=== PATIENT | female | born 1990 | race Caucasian/White ===

== ENCOUNTER 2016-02-18 05:54 | Emergency (ER) | payer OTHER ==
[2016-02-18] MEDS ORDERED: ONDANSETRON 4 MG ORAL DISINTEGRATING TAB (S0181) As Ordered ONE (06:10)
[2016-02-18] MEDS ORDERED: METOCLOPRAMIDE INJ 10MG/2ML VIAL (J2765) As Ordered ONE (07:33)
--- NOTE | 2016-02-18 09:38 | EDDOCDS ---
Physician Documentation [facility] Name: Sayra Hester Age: 25 yrs Sex: Female : 1990 Arrival Date: 02/18/2016 Time: 05:54 Bed 5 Private MD: Barrett [facility] Disposition: 02/18/16 08:17 Discharged to Home/Self Care. Impression: Nausea and vomiting. - Condition is Stable. - Discharge Instructions: Nausea and Vomiting. - Prescriptions for ZOFRAN ODT 4 mg - dissolve 1 tablet by ORAL route 4 times per day As needed do not chew, do not swallow whole; 10 tablet. - Medication Reconciliation, Family Work Release form. - Follow up: Emergency Department; When: As needed; Reason: Worsening of conditions. Follow up: [facility] Barrett; When: Call to arrange an appointment; Reason: Recheck today's complaints, Continuance of care. - Problem is new. - Symptoms have improved. Historical: - Allergies: no known allergies; - Home Meds: 1. doxycycline hyclate 100 mg Oral cap 1 cap once daily 2. [place] Carbonate 900mg Oral daily 3. Topamax 50 mg Oral tab 1 tab 2 times per day 4. Wellbutrin 150mg Oral daily - PMHx: Bipolar disorder; Migraines; - PSHx: none; - Social history: Smoking status: Patient states was never smoker of tobacco. No barriers to communication noted. - Family history: Not pertinent. - : The pt / caregiver states he / she is not on anticoagulants. Home medication list is obtained from the patient. - Exposure Risk Screening:: None identified. 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 (182.88 cm); Pain 5/10; 07:45 BP 107 / 57; Pulse 83; Resp 20; Temp 98.2; Pulse Ox 100% ; Pain 0/10; jlf 09:32 BP 110 / 56; Pulse 82; Resp 16; Temp 97.0; jmk 05:59 Body Mass Index 29.16 (97.52 kg, 182.88 cm) [facility] MDM: 06:08 Ondansetron 4 mg PO once ordered. fg 06:09 Ondansetron ODT Oral Disintegrating Tablet 4 mg PO once ordered. fg 07:03 Vital Signs ordered. cc10 07:12 IV Saline Lock ordered. cc10 07:12 NS 0.9% 1000 ml IV at bolus once ordered. cc10 07:12 Metoclopramide 10 mg IV at 40 mg/hr once over 15 mins ordered. cc10 07:34 Financial registration complete. lg 07:39 [facility] Payment Agreement was scanned into [employer] and attached to record. lg Administered Medications: 06:08 Not Given (Duplicate Order): Ondansetron 4 mg PO once fg 06:13 Drug: Ondansetron ODT 4 mg [ondansetron 4 mg disintegrating tablet (1 tabs)] Route: PO; [facility] 07:40 Drug: NS 0.9% 1000 ml Route: IV; Rate: bolus; Site: left antecubital; k 07:40 Drug: Metoclopramide 10 mg [metoclopramide 5 mg/mL injection solution] Route: IV; Rate: jmk 40 mg/hr; Infused Over: 15 mins; Site: left antecubital; Signatures: Dima John,RN RN Jerrica Anaya, [facility] Tricia Arango,RN RN Clinton Mcbride PA-C PAMerritt ccDesirae Mackenzie MD MD The chart was reviewed and I authenticate all verbal orders and agree with the evaluation and treatment provided.Attachments: 07:39 [facility] Payment Agreement lg MTDD
--- NOTE | 2016-02-18 09:38 | EDDOCDS ---
Nurse's Notes [facility] Name: Sayra Hester Age: 25 yrs Sex: Female : 1990 Arrival Date: 02/18/2016 Time: 05:54 Bed 5 Private MD: KARL Hyde Diagnosis: Nausea and vomiting Presentation: 02/17 06:01 Presenting complaint: Patient states: vomiting since 1am, sick recently. Adult [facility] Sepsis Screening: The patient does not have new or worsening altered mentation. Patient's respiratory rate is less than 22. Systolic blood pressure is greater than 100. Patient has a qSOFA score of 0- Negative Sepsis Screen. Suicide/Homicide risk assessment- the patient denies having any suicidal and/or homicidal ideations and does not present with any other emotional, behavioral or mental health complaints. Status: The patient is a dependent. Transition of care: patient was not received from another setting of care. 06:01 Method Of Arrival: Walkin/Carried/Asstd [facility] 06:04 Acuity: ELADIO Level 3 [facility] Triage Assessment: 06:03 General: Appears ill, Behavior is appropriate for age, cooperative. Pain: Location: [facility] back Pain currently is 5 out of 10 on a pain scale. HIV screening NA for this visit Offered previously. GI: Reports nausea, vomiting. 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 doxycycline hyclate 100 mg Oral cap 1 cap once daily 2. [place] Carbonate 900mg Oral daily 3. Topamax 50 mg Oral tab 1 tab 2 times per day 4. Wellbutrin 150mg Oral daily - PMHx: Bipolar disorder; Migraines; - PSHx: none; - Social history: Smoking status: Patient states was never smoker of tobacco. No barriers to communication noted. - Family history: Not pertinent. - : The pt / caregiver states he / she is not on anticoagulants. Home medication list is obtained from the patient. - Exposure Risk Screening:: None identified. Screenin:48 Screening information is obtained from the patient. Fall risk: No risks identified. jmk Assistance ADL's: Requires assistance with. Abuse/DV Screen: The patient / caregiver reports he/she is: not in a situation that causes fear, pain or injury. Nutritional screening: No deficits noted. Advance Directives: Currently, there is no health care proxy. There is no active DNR order. There is no living will. There is no Power of Aerospace Engineer. Advance directive information has not previously been placed in an [facility] medical record. home support is adequate. Assessment: 07:48 General: Appears in no apparent distress. Respiratory: No deficits noted. GI: Abdomen jmk is flat, non- distended Bowel sounds present X 4 quads. Abd is soft and non tender X 4 quads. 09:32 General: Appears clear liquid diet reinforced. small frequent amounts. receptive. jmk discharged with satisfactory upright gait. Vital Signs: 05:59 BP 112 / 73; Pulse 100; Resp 18; Temp 98.2; Pulse Ox 100% ; Weight 97.52 kg; Height 6 [facility] ft. (182.88 cm); Pain 5/10; 07:45 BP 107 / 57; Pulse 83; Resp 20; Temp 98.2; Pulse Ox 100% ; Pain 0/10; jlf 09:32 BP 110 / 56; Pulse 82; Resp 16; Temp 97.0; jmk 05:59 Body Mass Index 29.16 (97.52 kg, 182.88 cm) [facility] Vitals: 05:59 Log In Time: February 18, 2016 at 05:54. [facility] ED Course: 05:56 Patient visited by Deisy Santos. [facility] 05:56 Patient moved to Waiting [facility] 06:02 Triage Initiated [facility] 07:00 Alessandra Magallon RN is Primary Nurse. [facility] 07:00 Patient moved to 5 [facility] 07:02 Clinton Ambrosio PA-C [facility] cc10 07:02 Desirae Reyes MD is Attending Physician. cc10 07:12 Patient visited by Clinton Ambrosio PA-C. cc10 07:12 Patient visited by Clinton Ambrosio PA-C. cc10 07:17 Kane Paredes MD is Attending Physician. cc10 07:19 Primary Nurse role handed off by Alessandra Magallon RN [facility] 07:22 Barrett [facility] is Private Physician. cc10 07:39 Patient name changed from Sayra\S\\S\Kacie\S\ to Sayra\S\Funmi\S\Kacie. EDMS 07:39 [facility] Payment Agreement was scanned into [employer] and attached to record. lg 07:45 Patient visited by Gorge Diaz PCA. f 07:48 The patient / caregiver is instructed regarding the plan of care and ED course. k 07:48 Inserted saline lock: 20 gauge in left antecubital area. jmk 08:17 Barrett [facility] is Referral Physician. cc10 09:36 Discontinued lock intact, bleeding controlled, pressure dressing applied, No jmk redness/swelling at site. No procedures done that require assistance. Administered Medications: 06:08 Not Given (Duplicate Order): Ondansetron 4 mg PO once fg 06:13 Drug: Ondansetron ODT 4 mg [ondansetron 4 mg disintegrating tablet (1 tabs)] Route: PO; [facility] 07:40 Drug: NS 0.9% 1000 ml Route: IV; Rate: bolus; Site: left antecubital; k 07:40 Drug: Metoclopramide 10 mg [metoclopramide 5 mg/mL injection solution] Route: IV; Rate: jmk 40 mg/hr; Infused Over: 15 mins; Site: left antecubital; Intake: 09:32 IV: 400.00ml (NS); Total: 400.00ml. [facility] Order Results: There are currently no results for this order. Outcome: 08:17 Discharge ordered by Provider. cc10 09:36 Discharge Assessment: Patient awake, alert and oriented x 3. No cognitive and/or k functional deficits noted. Patient verbalized understanding of disposition instructions. patient administered narcotics - no. The following High Risk Discharge criteria are identified: None. Discharged to home ambulatory. Condition: good. Discharge instructions given to patient, Instructed on discharge instructions, follow up and referral plans. medication usage, Demonstrated understanding of instructions, medications, Pt was receptive of discharge instructions/ teaching. Prescriptions given X 1. No special radiology studies were completed. Property :Personal belongings accompany Pt. 09:37 Patient left the ED. brando Signatures: Dispatcher [employer] EDMS Dima John RN RN jmk Peters, Mary, RN RN mcp Ganter, LoriLee, Reg Reg Tricia Arango RN RN [facility] Gorge Diaz PCA LENS SHAPER GRINDER [facility] Clinton Ambrosio, SEDAC PA-C cc Deisy Santosb Desirae Reyes MD fg Corrections: (The following items were deleted from the chart) 06:04 06:01 Acuity: ELADIO [facility] MTDD
--- NOTE | 2016-02-20 10:38 | EDDOCDS ---
Physician Documentation [facility] Name: Sayra Hester Age: 25 yrs Sex: Female : 1990 Arrival Date: 02/18/2016 Time: 05:54 Bed 5 Private MD: Barrett [facility] Disposition: 02/18/16 08:17 Discharged to Home/Self Care. Impression: Nausea and vomiting. - Condition is Stable. - Discharge Instructions: Nausea and Vomiting. - Prescriptions for ZOFRAN ODT 4 mg - dissolve 1 tablet by ORAL route 4 times per day As needed do not chew, do not swallow whole; 10 tablet. - Medication Reconciliation, Family Work Release form. - Follow up: Emergency Department; When: As needed; Reason: Worsening of conditions. Follow up: [facility] Barrett; When: Call to arrange an appointment; Reason: Recheck today's complaints, Continuance of care. - Problem is new. - Symptoms have improved. Historical: - Allergies: no known allergies; - Home Meds: 1. doxycycline hyclate 100 mg Oral cap 1 cap once daily 2. [place] Carbonate 900mg Oral daily 3. Topamax 50 mg Oral tab 1 tab 2 times per day 4. Wellbutrin 150mg Oral daily - PMHx: Bipolar disorder; Migraines; - PSHx: none; - Social history: Smoking status: Patient states was never smoker of tobacco. No barriers to communication noted. - Family history: Not pertinent. - : The pt / caregiver states he / she is not on anticoagulants. Home medication list is obtained from the patient. - Exposure Risk Screening:: None identified. 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 (182.88 cm); Pain 5/10; 07:45 BP 107 / 57; Pulse 83; Resp 20; Temp 98.2; Pulse Ox 100% ; Pain 0/10; jlf 09:32 BP 110 / 56; Pulse 82; Resp 16; Temp 97.0; jmk 05:59 Body Mass Index 29.16 (97.52 kg, 182.88 cm) [facility] MDM: 06:08 Ondansetron 4 mg PO once ordered. fg 06:09 Ondansetron ODT Oral Disintegrating Tablet 4 mg PO once ordered. fg 07:03 Vital Signs ordered. cc10 07:12 IV Saline Lock ordered. cc10 07:12 NS 0.9% 1000 ml IV at bolus once ordered. cc10 07:12 Metoclopramide 10 mg IV at 40 mg/hr once over 15 mins ordered. cc10 07:34 Financial registration complete. lg 07:39 [facility] Payment Agreement was scanned into [employer] and attached to record. lg 14:03 T-Sheet-- Draft Copy was scanned into [employer] and attached to record. gb Administered Medications: 06:08 Not Given (Duplicate Order): Ondansetron 4 mg PO once fg 06:13 Drug: Ondansetron ODT 4 mg [ondansetron 4 mg disintegrating tablet (1 tabs)] Route: PO; [facility] 07:40 Drug: NS 0.9% 1000 ml Route: IV; Rate: bolus; Site: left antecubital; k 07:40 Drug: Metoclopramide 10 mg [metoclopramide 5 mg/mL injection solution] Route: IV; Rate: jmk 40 mg/hr; Infused Over: 15 mins; Site: left antecubital; Signatures: Dima John,RN RN Kaila Modi, Reg Reg gb Jerrica Burgos, Reg Reg lg Tricia Arango,RN RN [facility] Clinton Ambrosio, PA-C PA-C cc10 Desirae Reyes MD MD The chart was reviewed and I authenticate all verbal orders and agree with the evaluation and treatment provided.Attachments: 07:39 [facility] Payment Agreement lg 14:03 T-Sheet-- Draft Copy gb Chart Complete MTDD
--- NOTE | 2016-02-20 10:38 | EDDOCDS ---
Physician Documentation [facility] Name: Sayra Hester Age: 25 yrs Sex: Female : 1990 Arrival Date: 02/18/2016 Time: 05:54 Bed 5 Private MD: Barrett [facility] Disposition: 02/18/16 08:17 Discharged to Home/Self Care. Impression: Nausea and vomiting. - Condition is Stable. - Discharge Instructions: Nausea and Vomiting. - Prescriptions for ZOFRAN ODT 4 mg - dissolve 1 tablet by ORAL route 4 times per day As needed do not chew, do not swallow whole; 10 tablet. - Medication Reconciliation, Family Work Release form. - Follow up: Emergency Department; When: As needed; Reason: Worsening of conditions. Follow up: [facility] Barrett; When: Call to arrange an appointment; Reason: Recheck today's complaints, Continuance of care. - Problem is new. - Symptoms have improved. Historical: - Allergies: no known allergies; - Home Meds: 1. doxycycline hyclate 100 mg Oral cap 1 cap once daily 2. [place] Carbonate 900mg Oral daily 3. Topamax 50 mg Oral tab 1 tab 2 times per day 4. Wellbutrin 150mg Oral daily - PMHx: Bipolar disorder; Migraines; - PSHx: none; - Social history: Smoking status: Patient states was never smoker of tobacco. No barriers to communication noted. - Family history: Not pertinent. - : The pt / caregiver states he / she is not on anticoagulants. Home medication list is obtained from the patient. - Exposure Risk Screening:: None identified. 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 (182.88 cm); Pain 5/10; 07:45 BP 107 / 57; Pulse 83; Resp 20; Temp 98.2; Pulse Ox 100% ; Pain 0/10; jlf 09:32 BP 110 / 56; Pulse 82; Resp 16; Temp 97.0; jmk 05:59 Body Mass Index 29.16 (97.52 kg, 182.88 cm) [facility] MDM: 06:08 Ondansetron 4 mg PO once ordered. fg 06:09 Ondansetron ODT Oral Disintegrating Tablet 4 mg PO once ordered. fg 07:03 Vital Signs ordered. cc10 07:12 IV Saline Lock ordered. cc10 07:12 NS 0.9% 1000 ml IV at bolus once ordered. cc10 07:12 Metoclopramide 10 mg IV at 40 mg/hr once over 15 mins ordered. cc10 07:34 Financial registration complete. lg 07:39 [facility] Payment Agreement was scanned into [employer] and attached to record. lg 14:03 T-Sheet-- Draft Copy was scanned into [employer] and attached to record. gb Administered Medications: 06:08 Not Given (Duplicate Order): Ondansetron 4 mg PO once fg 06:13 Drug: Ondansetron ODT 4 mg [ondansetron 4 mg disintegrating tablet (1 tabs)] Route: PO; [facility] 07:40 Drug: NS 0.9% 1000 ml Route: IV; Rate: bolus; Site: left antecubital; k 07:40 Drug: Metoclopramide 10 mg [metoclopramide 5 mg/mL injection solution] Route: IV; Rate: jmk 40 mg/hr; Infused Over: 15 mins; Site: left antecubital; Signatures: Dima John,RN RN Kaila Modi, Reg Reg gb Jerrica Burgos, Reg Reg lg Tricia Arango,RN RN [facility] Clinton Ambrosio, PA-C PA-C cc10 Desirae Reyes MD MD The chart was reviewed and I authenticate all verbal orders and agree with the evaluation and treatment provided.Attachments: 07:39 [facility] Payment Agreement lg 14:03 T-Sheet-- Draft Copy gb Chart Complete MTDD
--- NOTE | 2016-02-20 10:38 | EDDOCDS ---
Nurse's Notes [facility] Name: Sayra Hester Age: 25 yrs Sex: Female : 1990 Arrival Date: 02/18/2016 Time: 05:54 Bed 5 Private MD: KARL Hyde Diagnosis: Nausea and vomiting Presentation: 02/17 06:01 Presenting complaint: Patient states: vomiting since 1am, sick recently. Adult [facility] Sepsis Screening: The patient does not have new or worsening altered mentation. Patient's respiratory rate is less than 22. Systolic blood pressure is greater than 100. Patient has a qSOFA score of 0- Negative Sepsis Screen. Suicide/Homicide risk assessment- the patient denies having any suicidal and/or homicidal ideations and does not present with any other emotional, behavioral or mental health complaints. Status: The patient is a dependent. Transition of care: patient was not received from another setting of care. 06:01 Method Of Arrival: Walkin/Carried/Asstd [facility] 06:04 Acuity: ELADIO Level 3 [facility] Triage Assessment: 06:03 General: Appears ill, Behavior is appropriate for age, cooperative. Pain: Location: [facility] back Pain currently is 5 out of 10 on a pain scale. HIV screening NA for this visit Offered previously. GI: Reports nausea, vomiting. 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 doxycycline hyclate 100 mg Oral cap 1 cap once daily 2. [place] Carbonate 900mg Oral daily 3. Topamax 50 mg Oral tab 1 tab 2 times per day 4. Wellbutrin 150mg Oral daily - PMHx: Bipolar disorder; Migraines; - PSHx: none; - Social history: Smoking status: Patient states was never smoker of tobacco. No barriers to communication noted. - Family history: Not pertinent. - : The pt / caregiver states he / she is not on anticoagulants. Home medication list is obtained from the patient. - Exposure Risk Screening:: None identified. Screenin:48 Screening information is obtained from the patient. Fall risk: No risks identified. jmk Assistance ADL's: Requires assistance with. Abuse/DV Screen: The patient / caregiver reports he/she is: not in a situation that causes fear, pain or injury. Nutritional screening: No deficits noted. Advance Directives: Currently, there is no health care proxy. There is no active DNR order. There is no living will. There is no Power of Commercial Production Editor. Advance directive information has not previously been placed in an [facility] medical record. home support is adequate. Assessment: 07:48 General: Appears in no apparent distress. Respiratory: No deficits noted. GI: Abdomen jmk is flat, non- distended Bowel sounds present X 4 quads. Abd is soft and non tender X 4 quads. 09:18 General: Appears no vomiting or diarrhea since arrival. awaiting IV fluid infusion. jmk nausea resolved and receptive to discharge.. 09:32 General: Appears clear liquid diet reinforced. small frequent amounts. receptive. jmk discharged with satisfactory upright gait. Vital Signs: 05:59 BP 112 / 73; Pulse 100; Resp 18; Temp 98.2; Pulse Ox 100% ; Weight 97.52 kg; Height 6 [facility] ft. (182.88 cm); Pain 5/10; 07:45 BP 107 / 57; Pulse 83; Resp 20; Temp 98.2; Pulse Ox 100% ; Pain 0/10; jlf 09:32 BP 110 / 56; Pulse 82; Resp 16; Temp 97.0; jmk 05:59 Body Mass Index 29.16 (97.52 kg, 182.88 cm) [facility] Vitals: 05:59 Log In Time: February 18, 2016 at 05:54. [facility] ED Course: 05:56 Patient visited by Deisy Santos. [facility] 05:56 Patient moved to Waiting [facility] 06:02 Triage Initiated [facility] 07:00 Alesasndra Magallon RN is Primary Nurse. [facility] 07:00 Patient moved to 5 [facility] 07:02 Clinton Ambrosio PA-C [facility] cc10 07:02 Desirae Reyes MD is Attending Physician. cc10 07:12 Patient visited by Clinton Ambrosio PA-C. cc10 07:12 Patient visited by Clinton Ambrosio PA-C. cc10 07:17 Kane Paredes MD is Attending Physician. cc10 07:19 Primary Nurse role handed off by Alessandra Magallon RN [facility] 07:22 KARL Hyde is Private Physician. cc10 07:39 Patient name changed from Sayra\S\\S\Kacie\S\ to Sayra\S\Funmi\S\Kacie. EDMS 07:39 [facility] Payment Agreement was scanned into mmCHANNEL and attached to record. lg 07:45 Patient visited by Gorge Diaz PCA. jlf 07:48 The patient / caregiver is instructed regarding the plan of care and ED course. jmk 07:48 Inserted saline lock: 20 gauge in left antecubital area. k 08:17 Barrett [facility] is Referral Physician. cc10 09:36 Discontinued lock intact, bleeding controlled, pressure dressing applied, No jmk redness/swelling at site. No procedures done that require assistance. 14:02 T-Sheet-- Draft Copy was scanned into mmCHANNEL and attached to record. gb Administered Medications: 06:08 Not Given (Duplicate Order): Ondansetron 4 mg PO once fg 06:13 Drug: Ondansetron ODT 4 mg [ondansetron 4 mg disintegrating tablet (1 tabs)] Route: PO; [facility] 07:40 Drug: NS 0.9% 1000 ml Route: IV; Rate: bolus; Site: left antecubital; jmk 07:40 Drug: Metoclopramide 10 mg [metoclopramide 5 mg/mL injection solution] Route: IV; Rate: jmk 40 mg/hr; Infused Over: 15 mins; Site: left antecubital; Intake: 09:32 IV: 400.00ml (NS); Total: 400.00ml. [facility] Order Results: There are currently no results for this order. Outcome: 08:17 Discharge ordered by Provider. cc10 09:36 Discharge Assessment: Patient awake, alert and oriented x 3. No cognitive and/or k functional deficits noted. Patient verbalized understanding of disposition instructions. patient administered narcotics - no. The following High Risk Discharge criteria are identified: None. Discharged to home ambulatory. Condition: good. Discharge instructions given to patient, Instructed on discharge instructions, follow up and referral plans. medication usage, Demonstrated understanding of instructions, medications, Pt was receptive of discharge instructions/ teaching. Prescriptions given X 1. No special radiology studies were completed. Property :Personal belongings accompany Pt. 09:37 Patient left the ED. brando Signatures: Dispatcher [facility] Dima John RN RN jmk Peters, Mary, RN RN Kaila Cesar, Reg Reg gb Jerrica Burgos, Reg Reg lg Tricia Arango,RN RN [facility] Gorge Diaz, OVEN EQUIPMENT REPAIRER OVEN EQUIPMENT REPAIRER Clinton Alcantara, PA-C PA-C Deisy Marinelli Frances MD fg Corrections: (The following items were deleted from the chart) 06:04 06:01 Acuity: ELADIO Level 4 [facility] Chart Complete MTDD
== END 2016-02-18 09:37 | disposition home or self-care (01) ==
LOC: M ED 05:54
DX: R11.2 Nausea with vomiting, unspecified (principal); R19.7 Diarrhea, unspecified; R42 Dizziness and giddiness; F31.9 Bipolar disorder, unspecified; G43.909 Migraine, unspecified, not intractable, without status migrainosus; Z79.899 Other long term (current) drug therapy
CPT/HCPCS: 96374; 99283; J2765

== ENCOUNTER 2016-08-06 12:45 | Emergency (ER) | payer OTHER ==
[~2016-08-06] VITALS: Ht 182.9 cm; Wt 105.1 kg
[2016-08-06] MEDS ORDERED: LITH300C PO (13:09)
[2016-08-06] MEDS ORDERED: WELLTAB38 PO (13:10)
[2016-08-06] MEDS ORDERED: ONDANSETRON 4 MG ORAL DISINTEGRATING TAB (S0181) PO ONE (14:00)
[2016-08-06 14:09] LABS: BASO % 0.5 % (0.0-1.0); EOS # 0.1 K/mm3 (0.0-0.50); EOS % 1.7 % (0.0-3.0); LARGE UNSTAINED CELL # 0.1 K/mm3 (0.0-0.4); LARGE UNSTAINED CELL % 1.5 % (0.0-4.0); LYMPH # 2.2 K/mm3 (1.5-6.5); LYMPH % 24.4 % (24.0-44.0); MEAN CORPUSCULAR HGB CONC 32.6 g/dl (32.0-36.5); MEAN CORPUSCULAR VOLUME 94.9 fl (80.0-96.0); MONO # 0.2 K/mm3 (0.0-0.8); MONO % 2.9 % (0.0-5.0); NEUTROPHILS # 5.9 K/mm3 (1.8-7.7); NEUTROPHILS % 69.1 % (36.0-66.0); PLATELET COUNT, AUTOMATED 210 k/mm3 (150-450); RED CELL DISTRIBUTION WIDTH 13.3 % (11.5-14.5); WHITE BLOOD COUNT 8.5 K/mm3 (4.0-10.0)
[2016-08-06 14:19] LABS: CONTROL LINE HCG INT CTR LINE PRESENT
[2016-08-06 15:02] LABS: ALBUMIN 3.5 GM/DL (3.2-5.2); ALKALINE PHOSPHATASE 74 U/L (45-117); ALT/SGPT 35 U/L (12-78); ANION GAP 4 MEQ/L (8-16); AST/SGOT 13 U/L (15-37); BILIRUBIN,DIRECT < 0.1 MG/DL (0.0-0.2); BILIRUBIN,TOTAL 0.3 MG/DL (0.2-1.0); BLOOD UREA NITROGEN 14 MG/DL (7-18); CALCIUM LEVEL 9.3 MG/DL (8.5-10.1); CARBON DIOXIDE LEVEL 26 MEQ/L (21-32); CHLORIDE LEVEL 110 MEQ/L (98-107); CREATININE FOR GFR 0.72 MG/DL (0.55-1.02); GLOMERULAR FILTRATION RATE > 60.0 (>60); GLUCOSE, FASTING 89 MG/DL (70-105); POTASSIUM SERUM 4.7 MEQ/L (3.5-5.1); SODIUM LEVEL 140 MEQ/L (136-145)
[2016-08-06] MEDS ORDERED: ACETAMINOPHEN TAB 650MG DOSE (2X325MG) PO ONE (18:30)
[2016-08-06 18:52] LABS: LITHIUM LEVEL 0.46 MEQ/L (0.60-1.20)
[2016-08-06 19:55] VITALS: BP 130/78
== END 2016-08-06 20:16 | disposition home or self-care (01) ==
LOC: M ED 12:45
DX: F31.9 Bipolar disorder, unspecified (principal); F45.9 Somatoform disorder, unspecified; G43.909 Migraine, unspecified, not intractable, without status migrainosus; Z79.899 Other long term (current) drug therapy

== ENCOUNTER → 2016-09-05 | Outpatient (REF) | payer OTHER ==
[~2016-09-05] MED LIST: LITH300C PO; WELLTAB38 PO
== END ==
LOC: M SFHCLERA 15:38
PROVIDERS: ATTEND Physician Assistant
DX: N89.8 Other specified noninflammatory disorders of vagina (principal); R10.30 Lower abdominal pain, unspecified

== ENCOUNTER → 2016-10-13 | Outpatient (CLI) | payer OTHER ==
--- NOTE | 2016-10-14 05:43 | REP ---
Right foot series: Four views. History: Puncture wound. Findings: Four views of the right foot demonstrate normal bones, joints and soft tissues. No fracture, soft tissue gas, or opaque foreign body seen. Impression: Negative right foot radiographs. Signed by Dani Saxena MD 10/14/2016 08:23 A
== END ==
LOC: M LRY 19:11
PROVIDERS: ATTEND Nurse Practitioner Family
DX: S91.331A Puncture wound without foreign body, right foot, initial encounter (principal); X58.XXXA Exposure to other specified factors, initial encounter; Y92.89 Other specified places as the place of occurrence of the external cause; Y93.89 Activity, other specified; Y99.8 Other external cause status
CPT/HCPCS: 11042; 73630; 90715; G0463

== ENCOUNTER → 2016-11-11 | Outpatient (CLI) | payer OTHER ==
--- NOTE | 2016-11-11 17:44 | REP ---
Right shoulder: Three views. History: Pain. Findings: The right glenohumeral and acromioclavicular joints are normally aligned. No fracture or subluxation is seen. Periarticular soft tissues are unremarkable. Impression: Negative right shoulder radiographs. Signed by Dani Saxena MD 11/12/2016 08:02 A
== END ==
LOC: M LRY 17:00
PROVIDERS: ATTEND Nurse Practitioner Family
DX: M25.511 Pain in right shoulder (principal)

== ENCOUNTER 2017-11-26 06:10 | Emergency (ER) | payer OTHER | END 2017-11-26 08:02 | disposition home or self-care (01) | LOC: M ED 06:10 | DX: R10.9 Unspecified abdominal pain (principal); W19.XXXA Unspecified fall, initial encounter; Y92.9 Unspecified place or not applicable; Y93.01 Activity, walking, marching and hiking; Y99.9 Unspecified external cause status; O99.342 Other mental disorders complicating pregnancy, second trimester; Z3A.18 18 weeks gestation of pregnancy; Z79.899 Other long term (current) drug therapy | CPT/HCPCS: 76815 ==